=== PATIENT | female | born 1970 | race Caucasian/White ===

== ENCOUNTER 2018-11-08 11:01 | Day surgery (SDC) | payer BC ==
[2018-11-08] MEDS ORDERED: FENTAnyl 50 MCG/ML VIAL IV (15:00)
[2018-11-08] MEDS ORDERED: MEPERIDINE 25 MG INJ IV (15:00)
[2018-11-08] MEDS ORDERED: ONDANSETRON 4 MG INJ IV (15:00)
[2018-11-08] MEDS ORDERED: SILVER NITRATE SWAB TOP (15:30)
[2018-11-08] MEDS ORDERED: NEOMYC/POLYMYX/BACIT 30 GM OINT TOP (15:35)
[2018-11-08] MEDS: SILVER NITRATE SWAB TOP (15:37)
== END 2018-11-08 16:24 | disposition home or self-care (01) ==
LOC: GIL 11:01
DX: R13.10 Dysphagia, unspecified (principal)
CPT/HCPCS: 43239; 84703; 88305; 88312; 88313